=== PATIENT | female | born 1960 | race Caucasian/White ===

== ENCOUNTER 2016-04-17 07:12 | Emergency (ER) | payer OTHER ==
[~2016-04-17] VITALS: Ht 160 cm; Wt 67.7 kg
[~2016-04-17 07:12] MED LIST: RISP3TAB44 PO
[2016-04-17] MEDS ORDERED: HydrOXYzine PAMOATE 50 MG CAPSULE PO ONE (07:45)
[2016-04-17] MEDS: RisperiDONE 1 MG TABLET PO ONE ×2 (07:53→08:08)
[2016-04-17 09:28] VITALS: BP 115/65
== END 2016-04-17 09:32 | disposition home or self-care (01) ==
LOC: EMS 07:13
DX: F41.9 Anxiety disorder, unspecified (principal); F31.9 Bipolar disorder, unspecified; F20.9 Schizophrenia, unspecified; F17.210 Nicotine dependence, cigarettes, uncomplicated
CPT/HCPCS: 99284